=== PATIENT | male | born 1960 | race Caucasian/White ===

== ENCOUNTER 2019-10-19 06:00 | Outpatient (RCR) | payer OTHER, SELFPAY | END 2019-11-10 00:01 | LOC: MOT 06:00 | PROVIDERS: Visit Provider Nurse Practitioner | DX: M54.12 Radiculopathy, cervical region (principal); M48.00 Spinal stenosis, site unspecified | CPT/HCPCS: 97110 ×7; 97124 ×3; 97140 ×2; 97166; G0283 ×5 ==